=== PATIENT | male | born 1985 | race Caucasian/White ===

== ENCOUNTER 2024-12-13 09:02 | Emergency (ER) | payer OTHER, SELFPAY ==
[2024-12-13 09:04] VITALS: BP 166/96
--- NOTE | 2024-12-13 09:38 | ED.GENMED ---
History of Present Illness
<Poornima Shields PA-C - Last Filed: 12/13/24 21:13>
General
Chief Complaint: Alcohol Problem
Source: patient
Exam Limitations: none
Time Seen by Provider: 12/13/24 09:18
Nursing documentation reviewed up to this point in time: agreed with
History of Present Illness
History of Present Illness:
Patient is a 39-year-old male presenting to the emergency department due to alcohol intoxication and anxiety. Patient states he has been drinking about a fifth of liquor per day over the past 10 days. He last drank this morning. Patient states
that prior to this he had been sober for about 6 months�although he does have a history of alcoholism. Patient reports feeling very anxious. He states that about 30 minutes ago he 'felt he was going to '. He came to the emergency department
for evaluation.
Patient denies any headache, vomiting, nausea, abdominal pain. No chest pain or shortness of breath. Patient has no known history of alcohol withdrawal seizures.
Patient at this time not interested in rehab placement.
Review of Systems
<Poornima Shields PA-C - Last Filed: 12/13/24 21:13>
Review of Systems
Allergies reviewed?: Yes
All Other Systems: ROS reviewed and negative except as documented in HPI and ROS
Phy Exam
<Poornima Shields PA-C - Last Filed: 12/13/24 21:13>
Physical Exam
Physical Exam:
Vitals: Hypertensive, tachycardic, afebrile
General: Patient is well appearing, no acute distress
Skin: Warm and dry, no rashes or lesions
Head: Normocephalic, atraumatic
Eyes: Sclera nonicteric. EOMs intact. No nystagmus.
Throat: Protecting airway
Neck: Normal ROM, no cervical spine tenderness, no meningismus
Cardiac: Tachycardic, normal rhythm, no murmurs.
Pulm: Normal respiratory effort, no wheezes, rales, rhonchi heard on exam.
Abdomen: Abdomen soft. No abdominal tenderness.
Extremities: No evidence of cyanosis or edema. Palpable DP pulse bilaterally. No tremor
Neuro: AAOx3. CN II-XII intact. No focal neurologic deficits.
Psychiatric: Anxious
Scores
<Poornima Shields PA-C - Last Filed: 12/13/24 21:13>
Withdrawal Assessment of Alcohol
Withdrawal Assessment Completed?: Yes
Nausea and Vomiting: No nausea and no vomiting
Tactile Disturbances: None
Tremor: No tremor
Auditory Disturbances: Not present
Paroxysmal Sweats: No sweat visible
Visual Disturbances: Not present
Anxiety: Mild anxiety
Headache, Fullness in Head: Not present
Agitation: Normal activity
Orientation and clouding of sensorium: Oriented and can do serial additions
Total CIWA Score: 1
Alcohol Withdrawal Medication Recommendation: Equal to MSAS Score 0-4. Monitor & re-assess q2hrs, NO MEDICATION NEEDED
Course
<Poornima Shields PA-C - Last Filed: 12/13/24 21:13>
Orders/Labs/Results
Orders:
Orders
12/13/24 09:34
0.9% Sodium Chloride 1000 ml [Nss] 1,000 ml IV BOLUS
Lorazepam [Ativan] 1 mg IV NOW STA
12/13/24 09:35
Ondansetron Injectable [Zofran] 4 mg IV NOW STA
12/13/24 09:53
Alcohol Urgent
Complete Blood Count/With Diff Urgent
Comprehensive Metabolic Panel Urgent
Salicylate Urgent
Tylenol [Acetaminophen] Urgent
12/13/24 11:59
Urine Drug Abuse Screen Urgent
Date Specimen was Collected: 12/13/24
Time Specimen was Collected: 11:54
12/13/24 12:48
EKG- Treatment ONCE
12/13/24 12:52
Alcohol Urgent
Abnormal Lab Results
12/13/24
09:53
Glucose 121 H mg/dl
(70-99)
Salicylates < 1.0 L mg/dl
(2.0-20.0)
Acetaminophen < 10 L ug/ml
(10-30)
12/13/24 09:53
12/13/24 09:53
Vital Signs
Pulse: 96
Initial and Last Documented VS:
Initial Vital Signs
Temp Pulse Resp BP Pulse Ox
97.8 F 125 20 166/96 97
12/13/24 09:04 12/13/24 09:04 12/13/24 09:04 12/13/24 09:04 12/13/24 09:04
Last Documented Vital Signs
Temp Pulse Resp BP Pulse Ox
97.8 F 114 20 123/84 98
12/13/24 09:04 12/13/24 12:30 12/13/24 11:45 12/13/24 12:00 12/13/24 09:45
<Fior Castro MD - Last Filed: 12/13/24 12:58>
Orders/Labs/Results
Orders:
Orders
12/13/24 09:34
0.9% Sodium Chloride 1000 ml [Nss] 1,000 ml IV BOLUS
Lorazepam [Ativan] 1 mg IV NOW STA
12/13/24 09:35
Ondansetron Injectable [Zofran] 4 mg IV NOW STA
12/13/24 09:53
Alcohol Urgent
Complete Blood Count/With Diff Urgent
Comprehensive Metabolic Panel Urgent
Salicylate Urgent
Tylenol [Acetaminophen] Urgent
12/13/24 11:59
Urine Drug Abuse Screen Urgent
Date Specimen was Collected: 12/13/24
Time Specimen was Collected: 11:54
12/13/24 12:48
EKG- Treatment ONCE
12/13/24 12:52
Alcohol Urgent
Abnormal Lab Results
12/13/24
09:53
Glucose 121 H mg/dl
(70-99)
Salicylates < 1.0 L mg/dl
(2.0-20.0)
Acetaminophen < 10 L ug/ml
(10-30)
12/13/24 09:53
12/13/24 09:53
Vital Signs
Initial and Last Documented VS:
Initial Vital Signs
Temp Pulse Resp BP Pulse Ox
97.8 F 125 20 166/96 97
12/13/24 09:04 12/13/24 09:04 12/13/24 09:04 12/13/24 09:04 12/13/24 09:04
Last Documented Vital Signs
Temp Pulse Resp BP Pulse Ox
97.8 F 114 20 123/84 98
12/13/24 09:04 12/13/24 12:30 12/13/24 11:45 12/13/24 12:00 12/13/24 09:45
<Poornima Shields PA-C - Last Filed: 12/13/24 21:13>
MDM/Problems Addressed
Differential Diagnosis Includes:
Not limited to: Alcohol intoxication, anxiety, alcohol withdrawal, polysubstance abuse
MDM/Problems Addressed:
39 year old male with hx as documented presents acutely intoxicated with an alcohol level of 251. He reports anxiety and concern about future alcohol withdrawl. He does have a hx of alcohol abuse. Patient denies any interest in speaking with [facility]
or rehab/detox. Patients last drink was about 1 hour prior to arrival. On exam patient is alert and oriented x 3. He is well appearing, not diaphoretic or tremulous. Basic labs were drawn without any abnormalities. Do not suspect acute alcohol
withdrawal as patient is not tremulous with an elevated alcohol level. His heart rate ranges between 90-low 100s at rest and is a normal sinus rhythm. Patient given IVF and ativan.
Chronic conditions affecting care:
Alcohol abuse
Acute Exacerbation and/or Progression of Chronic Illness:
Acute alcohol intoxication
<Poornima Shields PA-C - Last Filed: 12/13/24 21:13>
*Pulse Oximetry
Patient hypoxic: no
*EKG
Interpreted by ED Provider?: NA
*Film Writer Interpretation
Rate: normal and tachycardiac
Interpretation: normal
Heart Rate: 96
Rhythm: sinus
*Critical Care Note
Total Time (30-74mins, 75-104mins- exclusive of procedures): Not Applicable
<Poornima Shields PA-C - Last Filed: 12/13/24 21:13>
Update Note
Update Note:
Update 11:30 AM: Patient sleeping comfortably in room. Patient does state that he feels better, less anxious. He repeatedly declines [facility] or other resources/rehab. His vital signs have essentially normalized. Patient has no signs of alcohol
withdrawal. At this point - in light of patient declining further services he will be discharged home. Advised to return with any signs of alcohol withdrawal or other concerns.
ED Attending Note
<Poornima Shields PA-C - Last Filed: 12/13/24 21:13>
-
Portions of this chart may have been created with voice recognition software.� Occasional wrong word or��sound alike� substitutions may have occurred due to the inherent limitations of voice recognition software.
<Fior Castro MD - Last Filed: 12/13/24 12:58>
ED Attending Note
Patient seen and examined by attending physician: Yes
I performed the substantive portion of visit, reviewed & personally made and approve the management plan that is documented in note by myself or SALINA.: Yes
ED Attending Note:
Patient appears fully awake, alert, and denies nausea vomiting and headache. His heart rate ranges from 90s to low 100s. His lungs are clear. Cardiac heart monitor shows a sinus rhythm.
Patient admits that he feels slightly anxious. Patient's alcohol level was 251 shortly before 10 AM this morning. Patient reports that he last drank at 9 AM this morning.
I do not feel patient is in acute alcohol withdrawal at this time because he is not tremorous, appears calm, and had a significant alcohol level just 3 hours ago. I offered patient the cares and detox multiple times and he is not interested.
Patient reports he is going to go home by [employer] and will come back if he feels unsafe or is experiencing any symptoms of withdrawal, which we discussed. Patient reports in the past he has had withdrawal and knows how it feels.
Discharge Plan
Departure
Patient Disposition: Home (Routine Discharge)
Date of Disposition: 12/13/24
Time of Disposition: 12:55
Patient with high blood pressure during this ER visit?: Yes
Condition: Good
Covid-19: Not Applicable
Discharge Problem:
Alcohol abuse
Instructions: Alcohol Withdrawal (DC), Alcohol Use Disorder (DC), BLOOD PRESSURE
Prescriptions:
No Action
No Current Medications
0
Referrals:
NONE,* [Family Provider] -
Activity Restrictions/Additional Instructions:
RETURN TO THE EMERGENCY DEPARTMENT WITH ANY PERSISTENTLY ELEVATED HEART RATE, SHORTNESS OF BREATH, TREMORS, INTRACTABLE NAUSEA/VOMITING, SEIZURES, OR ANY OTHER CONCERNS
-It is important to stay well-hydrated. Eat balanced diet.
-With any evidence of severe withdrawal syndrome/please return to the emergency department.
-Please return to the emergency department if she would like to seek detox/rehab or contact your prior rehab for placement
Monitor your symptoms closely and return to the emergency department with any acute worsening/new symptoms or any other concerns
Interventions
Interventions:
*Risk Screen - Suicide Last Done: 12/13/24 09:04
*General Assessment Last Done: 12/13/24 09:04
*Neglect/Abuse Screening Last Done: 12/13/24 09:04
ED- Fall Risk Assessment Last Done: 12/13/24 13:29
*ED COVID-19 Vaccine History Last Done: 12/13/24 09:44
*Nursing Disposition Last Done: 12/13/24 13:29
ED- Neurological Assessment Last Done: 12/13/24 09:45
ED-Psychological Assessment Last Done: 12/13/24 09:45
Discharge Date and Time
Discharge Date/Time: 12/13/24 13:29
Print Language: [id number]
[2024-12-13 09:44] VITALS: BMI 28.6
[2024-12-13] MEDS: ATIVAN 1 MG IV (09:48)
[2024-12-13] MEDS: ZOFRAN 4 MG IV (09:48)
[2024-12-13] MEDS: NSS 1000 IV (09:48)
[2024-12-13 09:52] VITALS: BP 144/95
[2024-12-13 10:00] VITALS: BP 142/94
[2024-12-13 10:09] LABS: % Basophils 0.7 % (0-2); % Immature Granulocytes 0.5 % (0-0.5); % Lymphocytes 35.2 % (20.5-51.1); % Monocytes 6.5 % (1.7-9.3); % Neutrophils 57.1 % (42.2-75.2); Absolute Lymphocytes 2.1 10^3/uL (1.2-3.4); Absolute Monocytes 0.4 10^3/uL (0.1-0.6); Absolute Neutrophils 3.3 10^3/uL (1.4-6.5); Hematocrit 50.1 % (39.0-52.0); Hemoglobin 17.4 g/dL (13.0-18.0); Mean Corp Hgb Conc. 34.7 g/dL (33.0-37.0); Mean Corpuscular Hgb 29.3 pg (27.0-31.0); Mean Corpuscular Volume 84.3 fL (80.0-94.0); Mean Platelet Volume 10.2 fL (7.4-10.4); Nucleated Red Blood Cells % 0 % (-); Platelet Count 153 10^3/uL (130-400); Red Blood Cell Count 5.94 10^6/uL (4.70-6.10); Red Cell Dist. Width 12.7 % (11.5-14.5); White Blood Cell Count 5.9 10^3/uL (4.8-10.8)
[2024-12-13 10:21] LABS: ALT (SGPT) 38 U/L (0-50); AST (SGOT) 40 U/L (17-59); Acetaminophen < 10 ug/ml (10-30); Albumin 4.5 g/dl (3.5-5.0); Alcohol 251 mg/dl; Alkaline Phosphatase 76 U/L (38-126); Blood Urea Nitrogen 12 mg/dl (9-20); Calcium 9.1 mg/dl (8.4-10.2); Carbon Dioxide 26 mmol/L (22-30); Chloride 102 mmol/L (98-107); Estimated Creatinine Clearance 125 ml/min; Glucose 121 mg/dl (70-99); Salicylate < 1.0 mg/dl (2.0-20.0); Sodium 140 mmol/L (135-145); Total Bilirubin 0.6 mg/dl (0.2-1.3); eGFR > 60.00
[2024-12-13 11:00] VITALS: BP 121/78
[2024-12-13 12:00] VITALS: BP 123/84
[2024-12-13 12:30] LABS: Amphetamines Negative (Negative); Barbiturates Negative (Negative); Benzodiazepines Negative (Negative); Buprenorphine Negative (Negative); Cocaine Negative (Negative); Marijuana Negative (Negative); Methadone Negative (Negative); Methamphetamines Negative (Negative); Opiates Negative (Negative); Phencyclidine Negative (Negative); Tricyclic Antidepressants Negative (Negative)
[2024-12-13 13:13] LABS: Alcohol 191 mg/dl
== END 2024-12-13 13:29 | disposition home or self-care (01) ==
LOC: EMR 09:02
PROVIDERS: Physician Assistant; EMERGENCY PHYSICIAN Emergency Medicine
DX: F10.229 Alcohol dependence with intoxication, unspecified (principal); F41.9 Anxiety disorder, unspecified; Y90.8 Blood alcohol level of 240 mg/100 ml or more; R00.0 Tachycardia, unspecified; R03.0 Elevated blood-pressure reading, without diagnosis of hypertension; J45.909 Unspecified asthma, uncomplicated
CPT/HCPCS: 99284; 96374; 96375; 96361; 80053; 80143; 80179; 80306; 82077; 85025